=== PATIENT | male | born 1955 | race Two or more races ===

== ENCOUNTER → 2024-10-21 | Outpatient (CLI) | payer BC ==
[2024-10-21 09:08] LABS: Urine Bacteria None Seen /hpf (None Seen)
[2024-10-21 09:21] LABS: Basophils # (auto) 0 10 ^3/uL (0-0.2); Basophils % (auto) 0.5 % (0.0-2.0); Eosinophils # (auto) 0.1 10 ^3/uL (0-0.8); Eosinophils % (auto) 2.7 % (0.0-7.0); Hematocrit 42.8 % (41.0-53.0); Hemoglobin 14.6 g/dL (13.5-17.5); Lymphocytes # (auto) 1.8 10 ^3/uL (0.4-5.4); Lymphocytes % (auto) 40.4 % (10.0-50.0); Mean Corpuscular Hemoglobin 32.4 pg (28.0-32.0); Mean Corpuscular Hgb Conc. 34.2 g/dL (32.0-36.0); Mean Corpuscular Volume 94.9 fL (80.0-100.0); Monocytes # (auto) 0.4 10 ^3/uL (0-1.3); Monocytes % (auto) 9.3 % (0.0-12.0); Neutrophils # (auto) 2.1 10 ^3/uL (1.6-8.6); Neutrophils % (auto) 47.1 % (37.0-80.0); Nucleated Red Blood Cells % 0.2 %; Platelet Count (auto) 188 10^3/uL (140-450); Red Blood Cells 4.51 10^6/uL (4.5-5.90); Red Cell Distribution Width 13.3 % (11.8-14.3); White Blood Cell 4.5 10^3/uL (4.4-10.8)
[2024-10-21 09:32] LABS: Urine Blood Negative /uL (Negative); Urine Clarity Clear (Clear); Urine Color Yellow (Yellow); Urine Mucus FEW (None Seen); Urine Protein, UAD TRACE (Negative); Urine Specific Gravity 1.028 (1.001-1.035); Urine Squamous Epithelial Cell None Seen /hpf (<5); Urine Urobilinogen Normal (Negative); Urine WBC 1 /HPF (0-3); Urine pH 6.5 (5.0-9.0)
[2024-10-21 09:51] LABS: Alkaline Phosphatase 105 U/L (46-116); Anion Gap 8 (5-15); Aspartate Aminotransferase 30 U/L (13-40); Blood Urea Nitrogen 20 mg/dL (9-23); Calcium 10.2 mg/dL (8.7-10.4); Carbon Dioxide 28 mmol/L (20-31); Chloride 106 mmol/L (98-107); Cholesterol 112 mg/dL (< 200); Glucose 100 mg/dL (74-106); LDL Cholesterol 56 mg/dL (< 100); Magnesium 2.1 mg/dL (1.6-2.6); Potassium 3.9 mmol/L (3.5-5.1); Sodium 142 mmol/L (136-145); Total Protein 8.1 g/dL (5.7-8.2); Triglycerides 137 mg/dL (< 150)
[2024-10-21 10:27] LABS: Alanine Aminotransferase 57 U/L (7-40); Bilirubin, Total 1.3 mg/dL (0.2-1.0); HDL Cholesterol 29 mg/dL (40-59)
[2024-10-21 11:22] LABS: Folate (Folic Acid) 18.36 ng/mL (>5.38)
[2024-10-21 12:03] LABS: Uric Acid 6.7 mg/dL (3.7-9.2)
[2024-10-22 06:07] LABS: Basos 0 % (Not Estab.); Eos 3 % (Not Estab.); Eos (Absolute) 0.1 x10E3/uL (0.0-0.4); Hematocrit 43.6 % (37.5-51.0); Hemoglobin 14.7 g/dL (13.0-17.7); Immature Granulocytes (Abs) 0 x10E3/uL (0.0-0.1); Lymphs 41 % (Not Estab.); Lymphs (Absolute) 1.9 x10E3/uL (0.7-3.1); MCHC 33.7 g/dL (31.5-35.7); MCV 98 fL (79-97); Monocytes 10 % (Not Estab.); Monocytes (Absolute) 0.5 x10E3/uL (0.1-0.9); Neutrophils 46 % (Not Estab.); Neutrophils (Absolute) 2.1 x10E3/uL (1.4-7.0); Platelets 190 x10E3/uL (150-450); RBC 4.46 x10E6/uL (4.14-5.80); WBC 4.6 x10E3/uL (3.4-10.8)
[2024-10-22 14:07] LABS: % CD 4 Pos Lymph 23.3 % (30.8-58.5); % CD 8 Pos Lymph 42.8 % (12.0-35.5); Absolute CD 4 Helper 443 /uL (359-1519); CD4/CD8 Ratio 0.54 (0.92-3.72)
== END | disposition home or self-care (01) ==
LOC: LAB 08:38
PROVIDERS: ATTEND Internal Medicine
DX: E61.2 Magnesium deficiency (principal); E55.9 Vitamin D deficiency, unspecified; D51.9 Vitamin B12 deficiency anemia, unspecified; E78.49 Other hyperlipidemia; E79.0 Hyperuricemia without signs of inflammatory arthritis and tophaceous disease; R73.09 Other abnormal glucose; R82.998 Other abnormal findings in urine; R94.6 Abnormal results of thyroid function studies; R68.89 Other general symptoms and signs; R82.90 Unspecified abnormal findings in urine
CPT/HCPCS: 36415; 80053; 80061; 81001; 82306; 82607; 82746; 83036; 83735; 84443; 84550; 85025; 86360; 86703; 87086; 87389

== ENCOUNTER 2025-02-16 09:40 | Outpatient (CLI) | payer BC ==
[2025-02-16 10:39] LABS: Hematocrit 38.8 % (41.0-53.0); Hemoglobin 13.4 g/dL (13.5-17.5); Mean Corpuscular Hemoglobin 32.5 pg (28.0-32.0); Mean Corpuscular Volume 93.7 fL (80.0-100.0); Nucleated Red Blood Cells % 0.0 %
[2025-02-16 10:50] LABS: Albumin 4.5 g/dL (3.2-4.8); Alkaline Phosphatase 105 U/L (46-116); Anion Gap 7 (5-15); BUN/Creatinine Ratio 15.7 (10.0-20.0); Blood Urea Nitrogen 14 mg/dL (9-23); Calcium 10.1 mg/dL (8.7-10.4); Carbon Dioxide 29 mmol/L (20-31); Chloride 105 mmol/L (98-107); Glucose 95 mg/dL (74-106); Potassium 4.4 mmol/L (3.5-5.1); Sodium 141 mmol/L (136-145); Total Protein 7.5 g/dL (5.7-8.2); Triglycerides 125 mg/dL (< 150)
[2025-02-16 10:51] LABS: Bilirubin, Total 1.2 mg/dL (0.2-1.0); Cholesterol 101 mg/dL (< 200)
[2025-02-16 10:52] LABS: Alanine Aminotransferase 46 U/L (7-40); HDL Cholesterol 30 mg/dL (40-59)
[2025-02-17 08:07] LABS: Hematocrit 39.7 % (37.5-51.0); Hemoglobin 13.4 g/dL (13.0-17.7); MCH 33.1 pg (26.6-33.0); MCHC 33.8 g/dL (31.5-35.7); MCV 98 fL (79-97); RBC 4.05 x10E6/uL (4.14-5.80); RDW 13.0 % (11.6-15.4); WBC 4.6 x10E3/uL (3.4-10.8)
[2025-02-17 16:07] LABS: CD4/CD8 Ratio 0.48 (0.92-3.72)
== END 2025-02-16 19:34 | disposition home or self-care (01) ==
LOC: LAB 09:40
PROVIDERS: ATTEND Specialist
DX: I11.0 Hypertensive heart disease with heart failure (principal); E11.9 Type 2 diabetes mellitus without complications; I50.9 Heart failure, unspecified; E78.5 Hyperlipidemia, unspecified; E03.9 Hypothyroidism, unspecified; D64.9 Anemia, unspecified; R68.89 Other general symptoms and signs
CPT/HCPCS: 36415; 80053; 80061; 83036; 84443; 85025; 86360; 87536

== ENCOUNTER 2025-03-16 08:01 | Outpatient (CLI) | payer BC ==
[2025-03-16 08:36] LABS: Urine Protein, UAD Negative (Negative)
[2025-03-16 08:43] LABS: Hematocrit 37.3 % (41.0-53.0); Hemoglobin 13.1 g/dL (13.5-17.5); Mean Corpuscular Hemoglobin 33.0 pg (28.0-32.0); Mean Corpuscular Volume 93.9 fL (80.0-100.0); Nucleated Red Blood Cells % 0.1 %
[2025-03-16 09:03] LABS: Albumin 4.6 g/dL (3.2-4.8); Alkaline Phosphatase 87 U/L (46-116); Anion Gap 8 (5-15); BUN/Creatinine Ratio 16.9 (10.0-20.0); Bilirubin, Total 1.1 mg/dL (0.2-1.0); Blood Urea Nitrogen 15 mg/dL (9-23); Calcium 9.4 mg/dL (8.7-10.4); Carbon Dioxide 28 mmol/L (20-31); Chloride 105 mmol/L (98-107); Cholesterol 98 mg/dL (< 200); Glucose 100 mg/dL (74-106); Magnesium 2.2 mg/dL (1.6-2.6); Potassium 4.0 mmol/L (3.5-5.1); Sodium 141 mmol/L (136-145); Total Protein 7.2 g/dL (5.7-8.2); Triglycerides 100 mg/dL (< 150)
[2025-03-16 09:05] LABS: Alanine Aminotransferase 44 U/L (7-40); HDL Cholesterol 30 mg/dL (40-59)
[2025-03-16 09:25] LABS: Uric Acid 6.7 mg/dL (3.7-9.2)
== END 2025-03-16 17:00 | disposition home or self-care (01) ==
LOC: LAB 08:01
PROVIDERS: ATTEND Internal Medicine
DX: E78.49 Other hyperlipidemia (principal); E61.2 Magnesium deficiency; E79.0 Hyperuricemia without signs of inflammatory arthritis and tophaceous disease; R68.89 Other general symptoms and signs; R73.09 Other abnormal glucose; R94.6 Abnormal results of thyroid function studies; R82.998 Other abnormal findings in urine; E55.9 Vitamin D deficiency, unspecified; R82.79 Other abnormal findings on microbiological examination of urine; D51.9 Vitamin B12 deficiency anemia, unspecified
CPT/HCPCS: 36415; 80053; 80061; 81001; 82306; 82607; 83036; 83735; 84443; 84550; 85025; 87086

== ENCOUNTER → 2025-04-21 | Outpatient (CLI) | payer BC ==
[2025-04-21 07:42] LABS: Hematocrit 36.1 % (41.0-53.0); Hemoglobin 12.9 g/dL (13.5-17.5); Mean Corpuscular Hemoglobin 33.3 pg (28.0-32.0); Mean Corpuscular Volume 93.3 fL (80.0-100.0); Nucleated Red Blood Cells % 0.1 %
[2025-04-21 07:58] LABS: Urine Protein, UAD Negative (Negative)
[2025-04-21 08:07] LABS: Alanine Aminotransferase 36 U/L (7-40); Albumin 4.2 g/dL (3.2-4.8); Alkaline Phosphatase 78 U/L (46-116); Anion Gap 10 (5-15); BUN/Creatinine Ratio 11.4 (10.0-20.0); Blood Urea Nitrogen 10 mg/dL (9-23); Calcium 9.3 mg/dL (8.7-10.4); Carbon Dioxide 28 mmol/L (20-31); Chloride 105 mmol/L (98-107); Glucose 101 mg/dL (74-106); Potassium 3.8 mmol/L (3.5-5.1); Sodium 143 mmol/L (136-145); Total Protein 7.3 g/dL (5.7-8.2); Triglycerides 98 mg/dL (< 150)
[2025-04-21 08:08] LABS: Cholesterol 97 mg/dL (< 200)
[2025-04-21 08:10] LABS: Bilirubin, Total 1.2 mg/dL (0.2-1.0); HDL Cholesterol 28 mg/dL (40-59)
[2025-04-21 11:43] LABS: Uric Acid 6.0 mg/dL (3.7-9.2)
== END | disposition home or self-care (01) ==
LOC: LAB 07:28
PROVIDERS: ATTEND Internal Medicine
DX: E78.49 Other hyperlipidemia (principal); E61.2 Magnesium deficiency; E79.0 Hyperuricemia without signs of inflammatory arthritis and tophaceous disease; E55.9 Vitamin D deficiency, unspecified; R94.6 Abnormal results of thyroid function studies; D51.9 Vitamin B12 deficiency anemia, unspecified; R82.79 Other abnormal findings on microbiological examination of urine; R82.90 Unspecified abnormal findings in urine; R82.998 Other abnormal findings in urine; R68.89 Other general symptoms and signs; R73.09 Other abnormal glucose
CPT/HCPCS: 36415; 80053; 80061; 81001; 82306; 82607; 82746; 83036; 84443; 84550; 85025; 87086

== ENCOUNTER 2025-04-28 06:54 | Day surgery (SDC) | payer BC ==
[2025-04-26 09:49] LABS: Hematocrit 38.5 % (41.0-53.0); Hemoglobin 13.6 g/dL (13.5-17.5); Mean Corpuscular Hemoglobin 33.0 pg (28.0-32.0); Mean Corpuscular Volume 93.4 fL (80.0-100.0); Nucleated Red Blood Cells % 0.1 %
[2025-04-26 09:53] LABS: INR 1.05 (0.9-1.15); Partial Thromboplastin Time 27.4 SEC (24.5-34.5); Prothrombin Time 11.1 sec (9.3-11.8)
[2025-04-26 10:16] LABS: Albumin 4.5 g/dL (3.2-4.8); Alkaline Phosphatase 79 U/L (46-116); Anion Gap 9 (5-15); BUN/Creatinine Ratio 12.9 (10.0-20.0); Blood Urea Nitrogen 11 mg/dL (9-23); Calcium 9.3 mg/dL (8.7-10.4); Carbon Dioxide 28 mmol/L (20-31); Chloride 104 mmol/L (98-107); Glucose 103 mg/dL (74-106); Potassium 4.2 mmol/L (3.5-5.1); Sodium 141 mmol/L (136-145); Total Protein 7.7 g/dL (5.7-8.2)
[2025-04-26 10:17] LABS: Urine Protein, UAD Negative (Negative)
[2025-04-26 10:20] LABS: Alanine Aminotransferase 46 U/L (7-40); Bilirubin, Total 1.3 mg/dL (0.2-1.0)
[~2025-04-28] VITALS: Ht 180.3 cm; Wt 74.8 kg
[~2025-04-28 06:54] MED LIST: ABAC1TAB3 PO; ASPI-498 OR; ATOR-507 PO; CHOL20007 OR; CLOP75TA70 PO; DICL1GEL73 TD; ENAL1TAB42 PO; FLUT1SPR21; HYDR-4924 PO; METO25TA5 PO; PANT40TA2 PO
[2025-04-28] MEDS ORDERED: MIDAZOLAM HCL 2MG/2ML 2ml VIAL (1mg/ml) IM ONE (07:30)
--- NOTE | 2025-04-28 07:40 | ECG ---
[facility] Test Date: 2025-04-28 Test Time: 07:38:33 Pat Name: RONALD TRUONG Department: Room: Gender: M Machine Sizer: Jaden HOOK : 1955 Requested By: STAS REYNOSO Order Number: [id number] Reading MD: Scot Dougherty Measurements Intervals [place] Rate: 61 P: 25 MS: 178 QRS: -13 QRSD: 82 T: 32 QT: 402 QTc: 404 Interpretive Statements Normal sinus rhythm Electronically Signed On 04-28-2025 9:02:33 PDT by Scot Dougherty Please click the below link to view image of tracing.
--- NOTE | 2025-04-28 08:13 | DVH ---
CHEST RADIOGRAPH Indication: alvaro Technique: Single frontal view of the chest was obtained Comparison: XY CHEST TWO VIEWS ROUTINE on DOS: 04/26/25, CT CT CHEST/AB/PL W CON- IV ONLY on DOS: 03/22 FINDINGS: Lines and Tubes: None Lungs: No focal consolidation. Pleura: No effusion. No pneumothorax. Cardiomediastinal contours: Unremarkable Bones: No acute osseous abnormality. IMPRESSION: No acute cardiopulmonary disease.
[2025-04-28] MEDS ORDERED: MIDAZOLAM HCL 2MG/2ML 2ml VIAL (1mg/ml) IV ONE (09:00)
[2025-04-28] MEDS: LIDOCAINE VISCOUS 2% 15ML UD PO ONE (09:10)
[2025-04-28 09:13] VITALS: BP 173/96
[2025-04-28] MEDS: fentaNYL CITRATE 100 MCG/2 ML VL IV ONE (09:13)
--- NOTE | 2025-04-28 09:26 | DVHOP2 ---
Operative Report Trans-Esophageal Echocardiogram PROCEDURE REPORT Date of Service: 04/28/2025 Computing Tutor: Stas Reynoso MD PROCEDURE PERFORMED: Transesophageal echocardiogram, conscious sedation administration and supervision, more than 15 minutes. Intra cardiac bubble study. PREOPERATIVE DIAGNOSES: r/o Cardiac source for Emboli/CVA DESCRIPTION OF PROCEDURE: The patient signed informed consent understanding risks, benefits and alternatives of the procedure, he wished to proceed. The patient was given 15 mL of oral viscous lidocaine. He was placed in a left lateral decubitus position and conscious sedation was administered per photo lab specialist protocol (1 mg of Versed and 25 mcg of Fentanyl). I administered a bite block into his mouth and a XU probe into the mid esophagus without any difficulties or complications. Multiple planar images were obtained. Bubble study was also performed. At the completion of procedure, XU probe was removed and there were no immediate complications. Vitals signs were stable throughout the procedure. FINDINGS: 1. Left ventricle: LVEF was 70%. There was no gross wall motion abnormality seen. 2. Right ventricle: RV was normal sized with normal systolic function. 3. Left atrium: LA normal sized. 4. Right atrium: RA was normal sized. 5. Mitral valve: Mild Mitral Regurgitation was seen. There was no Mitral stenosis. There was no vegetation. 6. Left atrial appendage: No evidence of thrombus. 7. Aortic valve: Trileaflet valve. No stenosis. Trace Aortic Insufficiency was seen. There was no vegetation 8. Pulmonic valve: Trivial pulmonic insufficiency. No significant stenosis. No vegetation was seen. 9. Tricuspid valve: Mild tricuspid regurgitation. There was no vegetation 10. Interatrial septum: Negative color flow for right to left shunt was observed. Bubble study was performed: negative for shunt 11. Pericardium: No significant effusion. 12. Thoracic aorta: No significant plaquing. No cardiac source for Emboli/CVA was identified. STAS REYNOSO MD Apr 28, 2025 09:26
== END 2025-04-28 10:30 | disposition home or self-care (01) ==
LOC: CATH 06:54
PROVIDERS: ATTEND Internal Medicine Cardiovascular Disease
DX: I08.1 Rheumatic disorders of both mitral and tricuspid valves (principal); I10 Essential (primary) hypertension; E78.5 Hyperlipidemia, unspecified; I73.9 Peripheral vascular disease, unspecified; Z86.73 Personal history of transient ischemic attack (TIA), and cerebral infarction without residual deficits; Z79.899 Other long term (current) drug therapy
CPT/HCPCS: 36415; 71045; 80053; 81001; 85025; 85610; 85730; 93005; 93312; J2250; J3010; J7040; 93325; 99152

== ENCOUNTER → 2025-06-28 | Outpatient (CLI) | payer BC ==
[2025-06-28 08:17] LABS: Hematocrit 37.6 % (41.0-53.0); Hemoglobin 13.0 g/dL (13.5-17.5); Mean Corpuscular Hemoglobin 33.0 pg (28.0-32.0); Mean Corpuscular Volume 95.5 fL (80.0-100.0); Nucleated Red Blood Cells % 0.0 %
[2025-06-28 09:06] LABS: Albumin 4.3 g/dL (3.2-4.8); Alkaline Phosphatase 77 U/L (46-116); Anion Gap 9 (5-15); BUN/Creatinine Ratio 20.2 (10.0-20.0); Blood Urea Nitrogen 17 mg/dL (9-23); Calcium 9.5 mg/dL (8.7-10.4); Carbon Dioxide 29 mmol/L (20-31); Chloride 105 mmol/L (98-107); Glucose 99 mg/dL (74-106); Potassium 4.2 mmol/L (3.5-5.1); Sodium 143 mmol/L (136-145); Total Protein 7.5 g/dL (5.7-8.2); Triglycerides 103 mg/dL (< 150)
[2025-06-28 09:07] LABS: Cholesterol 102 mg/dL (< 200)
[2025-06-28 09:08] LABS: Alanine Aminotransferase 52 U/L (7-40); Bilirubin, Direct 0.4 mg/dL (<0.3); Bilirubin, Total 1.2 mg/dL (0.2-1.0); HDL Cholesterol 31 mg/dL (40-59)
== END | disposition home or self-care (01) ==
LOC: LAB 07:52
PROVIDERS: ATTEND Specialist
DX: I11.0 Hypertensive heart disease with heart failure (principal); I50.9 Heart failure, unspecified; E11.9 Type 2 diabetes mellitus without complications; E03.9 Hypothyroidism, unspecified; E78.5 Hyperlipidemia, unspecified; R68.89 Other general symptoms and signs; D64.9 Anemia, unspecified
CPT/HCPCS: 36415; 80053; 80061; 82248; 84443; 85025

== ENCOUNTER 2025-07-07 08:01 | Outpatient (CLI) | payer BC ==
--- NOTE | 2025-07-07 12:31 | DVH ---
CLINICAL INFORMATION: 69 years old, Male; SEVERE HIP PAIN, DISEASE BLOOD BLOOD- FORMING ORGANS. TECHNIQUE: Following the intravenous administration of 25 mCi technetium 99m- MDP, anterior and posterior whole-body planar imaging was performed. COMPARISON: None FINDINGS: There is normal radiopharmaceutical uptake without evidence of focal osseous lesion. There is focal uptake in the lower pole of the left kidney which may be due to obstruction IMPRESSION: 1. No abnormal bony uptake is present. 2. Focal uptake in the lower pole of the left kidney raising question of obstruction of the calyx. May consider renal ultrasound FINAL REPORT
== END 2025-07-07 17:00 | disposition home or self-care (01) ==
LOC: XYW 08:01
PROVIDERS: ATTEND Internal Medicine
DX: D75.9 Disease of blood and blood-forming organs, unspecified (principal)
CPT/HCPCS: 78306; A9503